=== PATIENT | male | born 1960 | race Caucasian/White ===

== ENCOUNTER 2017-02-28 17:36 | Emergency (ER) | payer OTHER ==
[~2017-02-28] VITALS: Ht 182.9 cm; Wt 102.0 kg
[2017-02-28 17:42] VITALS: BP 148/94; PULSE 65; RESP 16; O2SAT 97
[2017-02-28] MEDS ORDERED: ROSU5TAB PO (17:45)
[2017-02-28] MEDS ORDERED: LISI-567 PO (17:45)
--- NOTE | 2017-02-28 18:22 | ED.REPORT ---
HPI-Back Pain 40 and Over Date of Service Feb 28, 2017 ED Provider: Giancarlo Stanley History of Present Illness: 57yo male with sharp R sided low back pain since this morning, steadily worsening. He has a hx. of lumbar surgerry and alsp a hx. of kidney stone which he suspects may have caused symptoms. No fever, dysuria, hematuria. Pain worse with movement. Ambulates with slight waist flexion. Nursing Notes Stated Complaint: SEVERE LOWER BACK PAIN Chief Complaint: Back Pain or Injury Nursing Notes Reviewed: Yes Allergies: Coded Allergies: No Known Allergies (Unverified , 02/28/17) Scheduled Lisinopril (Lisinopril) 20 Mg Tablet 20 MG PO DAILY Methylprednisolone (Medrol) 21 Tab/Pkg Tablet 1 TAB PO UD Follow package instructions Rosuvastatin Calcium (Crestor) 5 Mg Tablet 5 MG PO DAILY Scheduled PRN Hydrocodone-Acetaminophen 5-325 mg (Hydrocodone-Acetaminophen 5-325 mg) 1 Each Tablet 1-2 TABLET PO Q4H PRN PRN For Pain General Time Seen by MD: 18:09 Chief Complaint Back pain Hx Obtained From: Patient Arrived By: Walk-in Sudden in Onset?: Yes Onset Occurred: 9 - 12 hours ago Symptom Duration: Since onset Caused by: Spontaneous/no mechanism Location: : Spinal lumbar area Quality: Same as prior, Sharp, Stabbing Radiation: : Does not radiate Severity: Current: Severe Severity: Maximum: Severe Recent Healthcare: No recent doctor visit Similar Sx Previous: Yes Risk Factors )( AAA Risk Stratification Risk factors reviewed )( TAD Risk Stratification Risk factors reviewed Epidural Hematoma Risk Stratif Risk factors reviewed Epidural Abscess Risk Stratifi No risk factors Past Medical History Past Medical History Kidney stones Past Surgical History Lumbar spine fusion (complicated by infection, treated with multiple courses of antibiotics) Ambulatory Status Independent Review of Systems Constitutional: Denies: Chills, Fever Cardiovascular: Denies: Chest pain GI: Denies: Abdominal pain, Vomiting Male: Denies Dysuria, Denies Flank pain, Denies Hematuria Musculoskeletal: Reports: Back pain Complete sys rev & neg: except as marked. Physical Exam Initial Vital Signs Vital Signs (First) Date Time Temp Pulse Resp B/P Pulse Ox O2 Delivery O2 Flow Rate FiO2 02/28/17 17:42 36.1 65 16 148/94 97 Room Air Initial VS: Reviewed General/Constitutional: Awake, Alert, Not toxic appearing Distress / Hydration: Positive: Distress moderate Respiratory / Chest: Breath sounds NL, Breath sounds = bilat, No respiratory distress Cardiovascular: Heart rate NL, Regular rhythm, Heart sounds NL Abdomen: Soft, Non-tender, No guarding, No rebound, BS normoactive Flank / Spine / Paraspinal: Positive: Lumbar paraspinal tend... (Mid) Straight Leg Raise: Positive: Strt leg raise + L 60 deg, Strt leg raise + R 40 deg Neurologic: No sensory deficits Sensory Deficit: Negative: Saddle anesthesia Gait Abnormality: Positive: Antalgic gait Rectum / Perineum: Sphincter tone NL Interpretation & Diagnostics Lab Results Interpretation Result Diagram: 02/28/17 1834 02/28/17 1834 Test 02/28/17 18:07 02/28/17 18:34 Hold Urine Received (Received) White Blood Count 7.4th/mm3 (3.8-10.1) Red Blood Count 5.13mil/mm3 (4.40-5.80) Hemoglobin 16.1g/dL (13.8-17.2) Hematocrit 46.0% (41.0-50.0) Mean Corpuscular Volume 89.7fL (81-100) Mean Corpuscular Hemoglobin 31.4pg (27.0-35.0) Mean Corpuscular Hemoglobin Concent 35.0% (32.0-37.0) Red Cell Distribution Width 12.6% (12.3-15.4) Platelet Count 227bil/L (150-400) Neutrophils (%) (Auto) 55.0% (40-74) Lymphocytes (%) (Auto) 34.8% (14-46) Monocytes (%) (Auto) 6.5% (4-12) Eosinophils (%) (Auto) 2.2% (0-5) Basophils (%) (Auto) 0.7% (0-3) Sodium Level 140mEq/L (134-144) Potassium Level 4.0mEq/L (3.5-5.2) Chloride Level 102mEq/L (97-108) Carbon Dioxide Level 22mmol/L (18-29) Blood Urea Nitrogen 14mg/dL (6-24) Creatinine 0.91mg/dL (0.76-1.27) Estimat Glomerular Filtration Rate 91mL/min (>59) Glucose Level 147mg/dL (60-99) Calcium Level 9.6mg/dL (8.5-10.1) Re-Eval/Medical Decision Med Decision/Clinical Course Pt's pain and hx. warrented MRI eval. Differential Diagnosis: Positive: Musculoskeletal pain, Negative: Abdominal aortic aneurysm, Aortic dissection, Cauda equina syndrome , Epidural abscess, Epidural hematoma, Fracture, Herniated disk, Pyelonephritis , Spinal mass, Ureterolithiasis, Urinary obstruction Discharge & Departure Shift Change Sign-Out Patient Care Transferred: Yes Discussed Complaint(s): Yes Imaging Studies: Done, await radiologist Impression: Primary Impression: Low back pain Chronicity: acute Back pain laterality: right Sciatica presence: without sciatica Qualified Code: M54.5 - Low back pain Additional Impression: Spinal stenosis Spinal region: lumbar Qualified Code: M48.06 - Spinal stenosis, lumbar region Care Transferred to: Dr. Scott at shift change Attending Statement This is a 57-year-old male that she seemed by the mid-level provider. Personally interviewed and examined the patient. He is turned over to me pending the results of his MRI, which are notable for spinal stenosis which is chronic, but no acute surgical pathology identified. Afebrile, does not have any focal deficits, has normal laboratories. He has no findings of a luanne kidney stone. Describes mechanical pain. He is being discharged on some when necessary hydrocodone, with a trial course of a Medrol Dosepak. Routine return precautions are reviewed. He has a PCP that he follows he was located in [facility], which is near where he works, but his family does want him to have a local provider, so a referral to the [facility] residency clinic was provided. Patient is discharged in improved condition. Giancarlo Stanley Feb 28, 2017 18:21 Scot Scott MD Feb 28, 2017 21:54
[2017-02-28 18:43] LABS: BASOPHILS % (AUTO) 0.7 % (0-3); EOSINOPHILS % (AUTO) 2.2 % (0-5); MONOCYTES % (AUTO) 6.5 % (4-12); Mean Corpuscular Hemoglobin 31.4 pg (27.0-35.0); Mean Corpuscular Volume 89.7 fL (81-100); Platelet Count 227 bil/L (150-400)
[2017-02-28] MEDS ORDERED: HYDROcodone-APAP 5-325 mg Tablet PO ONE (18:50)
--- NOTE | 2017-02-28 21:25 | DRSVH ---
PROCEDURE: MRI LUMBAR SPINE WITH AND WITHOUT CONTRAST ([id number]) INDICATIONS: 57 year-old male with severe low back pain, and prior L4-L5 surgery. TECHNIQUE: Noncontrast sagittal T1 spin echo and T2 fast spin echo, sagittal STIR, axial T1 and T2 fast spin ech o through the lumbar spine. After the administration of contrast, sagittal and axial T1 spin echo wi th fat saturation through the lumbar spine. COMPARISON: None available. FINDINGS: Image quality: Excellent. Alignment and curvature: There is normal bony alignment. Marrow: Marrow is of normal overall signal. No vertebral body compression fractures. No suspicious marrow enhancement. There is L3-L4 and L4-L5 fatty endplate degenerative change. Spinal cord: Conus medullaris terminates at the T12 level. Visualized spinal cord demonstrates norm al signal, without suspicious enhancement. Paraspinous soft tissues: No paravertebral masses or abnormal enhancement. L1-L2: Disc bulge and facet joint arthropathy cause mild central canal stenosis and mild right forami nal stenosis. L2-L3: Disc bulge and facet joint arthropathy cause severe central canal stenosis and mild bilateral foraminal stenoses. L3-L4: Disc bulge and facet joint arthropathy cause moderate central canal stenosis, mild right and m oderate left foraminal stenoses. L4-L5: Disc bulge and facet joint arthropathy cause moderate bilateral foraminal stenoses. No central canal stenosis. L5-S1: No central canal or foraminal stenoses. IMPRESSION: 1. Severe L2-L3, moderate L3-L4, and mild L1-L2 central canal stenoses from disc and facet joint dege neration. 2. Multilevel bilateral foraminal stenoses from disc and facet joint degeneration as well, no signifi cant at the left L3-L4 and bilateral L4-L5 levels, where they are moderate in degree. Dictated by: Baldemar Hernandez M.D. on 02/28/2017 at 21:13 Approved by: Baldemar Hernandez M.D. on 02/28/2017 at 21:23
[2017-02-28] MEDS ORDERED: HYDR-4003 PO (21:35)
[2017-02-28] MEDS ORDERED: MTH4T PO (21:37)
[2017-02-28] MEDS ORDERED: _HYDROcodone/APAP 5-325 mg Tablet PO PRN (21:40)
[2017-02-28] MEDS ORDERED: HYDROmorphone 0.5 mg/0.5 mL iSecure Syringe IVPUSH PRN (21:50)
[2017-02-28] MEDS ORDERED: Ondansetron 2 mg/mL 2 mL Inj IVPUSH ONE (21:50)
[2017-02-28 21:57] VITALS: BP 136/78; PULSE 62; RESP 15; O2SAT 97
[2017-02-28 22:15] VITALS: BP 136/78; PULSE 62; RESP 15; O2SAT 97
== END 2017-02-28 22:16 ==
LOC: SED 17:36
DX: M48.06 Spinal stenosis, lumbar region (principal)
CPT/HCPCS: 36415; 72158; 80048; 85025; 96374; 96375; 99285; A9585; J1170; J2405